=== PATIENT | male | born 1980 | race Caucasian/White ===

== ENCOUNTER 2022-09-23 12:15 | Outpatient (RCR) | payer BC, SELFPAY ==
--- NOTE | 2022-09-23 13:23 | OTOPEVDC ---
Assessment and note entered by Сергей Chambers, OTR/L, CHT Thank you for referring Wiliam Gómez to [facility].? An evaluation has been completed. No further treatment is needed. Evaluation Information Assessment Status Evaluation & Discharge Diagnosis Right 5th digit sprain Onset 06/23/22 Subjective Information Injury 06/23/22, but delayed tx. Been immobilized in boxer's splint since 08/27/22. Right hand dominant. Works in IT, on a computer. Presents today with minimal ROM deficit at the MCP joint of the right small finger (10 degrees less than left hand). IP joints are symmetrical to the unaffected hand. Orders are for ROM only at this time. Reported Pain Level Pain Score 0: Self Report Additional Pain Score Comments Patient reporting no pain at rest. Increased pain with abducting the finger or when shaking hands with someone. States gross gripping isn't too uncomfortable. Assessment OT Clinical Summary Patient referred to outpatient hand therapy following right small finger sprain 06/23/22. He has been immobilized for about a month and reports a decrease in his swelling and pain. His ROM is symmetrical to the unaffected, except for a 10 degree difference at the MCP joint. He has been issued an active/passive ROM HEP and demonstrates excellent understanding. We are not cleared to begin strengthening. He was issued putty to begin strengthening when cleared at his next appointment on 10/28/21. At this time he has an excellent understanding of his HEP and no further skilled OT is indicated at this time. Thank you for this referral. Plan of Care OT Services Indicated No
== END 2022-09-23 14:33 | disposition home or self-care (01) ==
LOC: ANHOT 12:15
PROVIDERS: PCP Family Medicine; Visit Provider Nurse Practitioner
DX: M79.642 Pain in left hand (principal); S63.617D Unspecified sprain of left little finger, subsequent encounter
CPT/HCPCS: 97110; 97165

== ENCOUNTER 2024-01-13 11:15 | Emergency (ER) | payer BC, SELFPAY ==
[2024-01-13 11:25] VITALS: BP 133/88; PULSE 51; RESP 16; TEMP 36.6; O2SAT 99
--- NOTE | 2024-01-13 13:08 | ED.GENADULT ---
HPI - General Adult General Chief complaint: Upper Respiratory Infection Stated complaint: sore throat,tired Source: patient Mode of arrival: ambulatory Limitations: no limitations History of Present Illness HPI narrative: Patient presents for evaluation of sore throat since yesterday. He initially thought his symptoms were related to allergies so he tried taking allergy medication. He did not have any relief in his symptoms today so opted to come in for further evaluation. No fever, chills, nausea, vomiting, diarrhea, cough, SOB, or other infectious symptoms. He does not smoke. He is not taking any medication to assist with his symptoms. Related Data Home Medications Medication Instructions Recorded Confirmed No Home Medications 01/13/24 01/13/24 Allergies Allergy/AdvReac Type Severity Reaction Status Date / Time No Known Allergies Allergy Verified 11/09/23 08:39 Review of Systems Review of Systems: CONSTITUTIONAL: Denies fever, chills, or sweats. EYES: Denies visual changes, redness, or discharge. ENT: Reports sore throat. Denies rhinorrhea, congestion, or otalgia. CARDIOVASCULAR: Denies chest pain, palpitations, or edema. RESPIRATORY: Denies cough or dyspnea. GASTROINTESTINAL: Denies abdominal pain, nausea, vomiting, or diarrhea. GENITOURINARY: Denies dysuria or hematuria. SKIN: Denies rash or itching. MUSCULOSKELETAL: Denies back pain, joint pain, or myalgia. NEUROLOGIC: Denies headache, numbness, dizziness, or weakness. PSYCHIATRIC: Denies anxiety or depression. [facility] Past Medical History Medical History Asthma Impingement syndrome, shoulder, left Rash Surgical History Surgical History History of wisdom tooth extraction Family History Family History Father Family history of coronary artery disease Heart disease Grandparent Heart disease Other Heart disease Social History Social History Smoking status: Never smoker Second hand tobacco smoke exposure: No Alcohol intake: current Drinks per week: 4 Alcohol use details: Beer Substance use: never Substance use type: does not use Living arrangements: with family Occupation/Education: occupation Additional occupation/education comments: [employer] Gender identity (if verbalized by the patient): Male Sexual Orientation (if Verbalized by the Patient): Straight or Heterosexual Spiritual care concerns: No Exam Narrative: GENERAL: Well-appearing, well-nourished, and in no acute distress. HEAD: Normocephalic, atraumatic. EYES: PERRLA and EOMI. ENT: Nares clear, no rhinorrhea or epistaxis. Mucous membranes moist. Oropharynx without tonsillar hypertrophy exudate or other lesions. Bilateral TMs pearly flores nonbulging NECK: Supple. No adenopathy or masses. No carotid bruits or JVD CHEST: Clear to auscultation. No respiratory distress. No wheezes rales or rhonchi HEART: Regular rate and rhythm. No murmur heard. Normal peripheral pulses. ABDOMEN: Soft, nontender, nondistended, normal active bowel sounds. EXTREMITIES: Normal range of motion. No edema. SKIN: Warm, dry, no rash. NEURO: No focal deficits. Alert and oriented x3. PSYCH: Normal mood and affect. Course Course Emergency Course: this is a 43-year-old male who presented for evaluation of a sore throat. Rapid strep negative. Through shared decision making opted to wait for throat culture before initiating any additional medications outside of [id number] agents which he can take as needed. He should follow-up with his primary provider and go to the ER for worsening symptoms. Patient is in agreement with plan of care. Level of Care: Express Care Visit Vital Signs Vital signs: Vi
== END 2024-01-13 13:10 | disposition home or self-care (01) ==
PROVIDERS: Emergency Provider Nurse Practitioner; PCP Family Medicine
DX: J02.9 Acute pharyngitis, unspecified (principal); J45.909 Unspecified asthma, uncomplicated
CPT/HCPCS: 87081; 87880; 99213; G0463

== ENCOUNTER 2025-02-02 00:05 | Day surgery (SDC) | payer BC, SELFPAY ==
[2025-01-24 14:09] VITALS: BMI 25.1
--- OUTSIDE RECORDS SUMMARY | 2025-02-02 00:07 | XMS_ITS | Clinical Summary ---
Author Organization [facility] Address [address] [place] [address] Care Team Providers Care First Aid Teacher Name Role Phone Ayan Alexander MD Primary Care Provider [phone] Source Comments [facility],non-owned Affiliates and Associated Physician Practices is amultiple site organization consisting of ambulatory clinics and hospital sitesin [place], [place], [place] and [place]. This disclosure is being madepursuant to the Care Everywhere program and may not contain all information available regarding this patient. Last updated 18.[facility] Allergies No known active allergies Medications * Be aware that medications may not be up to date on this document. Alwaysverify current medications with the patient. MELOXICAM PO Active Albuterol Sulfate (PROAIR HFA IN) Acti ve Family History Medical History Relation Name Comments Hyperlipidemia Father Relation Name Status Comments Father Alive Mother Alive Social History Tobacco Use Types Packs/Day Years Used Date Smoking Tobacco: Never Smokeless Tobacco: Never Sex and Gender Information Value Date Recorded Sex Assigned at Not on file Legal Sex Male 10:02 AM CDT Gender Identity Not on file Sexual Orientation Not on file Last Filed Vital Signs Vital Sign Reading Time Taken Comments Blood Pressure 116/80 12/21/2017 3:48 PM CDT Pulse 61 12/21/2017 3:48 PM CDT Temperature 36.9 C (98.5 F) 12/21/2017 3:48 PM CDT Respiratory Rate 16 12/21/2017 3:48 PM CDT Oxygen Saturation 98% 12/21/2017 3:48 PM CDT Inhaled Oxygen Concentration - - Weight 74.8 kg (165 lb) 12/21/2017 3:48 PM CDT Height 175.3 cm (5' 9 ) 12/21/2017 3:48 PM CDT Body Mass Index 24.37 12/21/2017 3:48 PM CDT Plan of Treatment Health Maintenance Due Date Last Done Comments LIPID TESTING 1980 HIV SCREENING 1995 HEPATITIS C SCREENING 10/02/1998 DTAP/TDAP/TD VACCINES (1 - Tdap) 1999 HEPATITIS B VACCINE (1 of 3 - 19+ 3-dose series) 1999 COVID-19 VACCINE (1 - 2023-2 5 season) 2024 DEPRESSION SCREENING 09/21/2024 INFLUENZA VACCINE (Season Ended) 2025 ZOSTER VACCINE (1 of 2) 2030 HIB VACCINE Aged Out No longer eligi ble based on patient's age to complete this topic HPV VACCINE Aged Out No longer eligi ble based on patient's age to complete this topic MENINGOCOCCAL (Group B) VACC INE SHARED DECISION-MAKING Aged Out No longer eligibl e based on patient's age to complete this topic MENINGOCOCCAL GROUPS A/C/Y/W VACCINE Aged Out No longer eligible b ased on patient's age to complete this topic PNEUMOCOCCAL VACCINE Aged Out No long er eligible based on patient's age to complete this topic Insurance Care Teams First Aid Teacher Relationship Specialty Start Date End Date Ayan Alexander MD [address] [place] [address] PCP - General Family Medicine 12/21/17
[2025-02-02 12:13] VITALS: BP 142/82; PULSE 55; RESP 20; TEMP 35.9; O2SAT 100; BMI 25.3
[2025-02-02] MEDS: LACTATED RINGERS 1,000 ML 150 ML IV CONT (12:23)
--- NOTE | 2025-02-02 12:41 | WPDANESEPPF ---
Anes - Initial Pre Proc Eval Procedure: Operation Date: 02/02/25 13:30 Proposed Procedures p Colonoscopy - Jose Menchaca MD Date/Time: 02/02/25 12:41 Surgeon: Jose Menchcaa MD Pre Op Diagnosis: Early satiety, constipation Patient Data Age: 44 Gender: M Height: 1.75 m Weight: 77.8 kg Last Vital Signs Temp 35.9 C L 02/02/25 12:13 Pulse 55 L 02/02/25 12:13 Resp 20 02/02/25 12:13 BP 142/82 H 02/02/25 12:13 Pulse Ox 100 02/02/25 12:13 O2 Del Method Room Air 02/02/25 12:13 Allergies Allergy/AdvReac Type Severity Reaction Status Date / Time No Known Allergies Allergy Verified 02/02/25 12:12 Home Medications Medication Instructions Recorded Confirmed Type No Home Medications 01/13/24 01/24/25 History Patient hx anesthesia problems: none Family hx anesthesia problems: none Results Review: All pre-operative results and documents have been reviewed as part of the pre-operative evaluation. [facility] Past Medical History Medical History Asthma Rash Impingement syndrome, shoulder, left Surgical History Surgical History History of wisdom tooth extraction Family History Family History Father Family history of coronary artery disease Heart disease Grandparent Heart disease Other Heart disease Social History Social History Social History: Smoking status: Never smoker Second hand tobacco smoke exposure: No Alcohol intake: current Drinks per week: 2 Substance use: never Substance use type: does not use Do You Feel Safe in your Home?: Yes Lack of Transportation: No Lack of Food: Never True Current Housing: I Have Housing Concerned About Future Housing: No Difficulty Paying Gas/Electric Bills: No Difficulty Paying for Meds: No Currently Unemployed: No Education: Don't Know Difficulty w/ Childcare or Family Care: No Living arrangements: with family Occupation/Education: occupation 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 Gender identity (if verbalized by the patient): Male Sexual Orientation (if Verbalized by the Patient): Straight or Heterosexual Spiritual care concerns: No Anes - Eval Final PreProcedure Day of Procedure 02/02/25 12:41 Patient weight: normal Heart: regular rate and rhythm Lungs: clear to auscultation Airway: Mallampati scale class II Neurological: alert and oriented Last oral intake: >/= 8 hours ASA classification: II Emergent: no Anesthetic plan: proceed Anesthesia type and monitoring: general GIVS and standard monitoring Results Review: All pre-operative results and documents have been reviewed as part of the pre-operative evaluation. Informed Consent: The patient's anesthetic plan and its attendant risks and benefits were discussed with the patient/family/POA. Questions were solicited and answers provided to the satisfaction of the patient/family/POA.
--- NOTE | 2025-02-02 13:16 | PM.IMHP ---
H&P: HPI History of Present Illness Date/Time: 02/02/25 13:16 Chief Complaint: Sudden change in bowel habits Narrative: approximately 2 months ago, the patient experienced severe constipation which he never had before, spending more than a week without a bowel movement, not associated with abdominal pain, rectal bleeding or tenesmus. He was referred by his primary care physician for colonoscopy to rule out mechanical causes for temporary Intestinal obstruction. Review of Systems Review of Systems: All systems reviewed & are unremarkable except as noted in HPI and below PMFSH Past Medical History Medical History Asthma Rash Impingement syndrome, shoulder, left Surgical History Surgical History History of wisdom tooth extraction Family History Family History Father Family history of coronary artery disease Heart disease Grandparent Heart disease Other Heart disease Social History Social History Social History: Smoking status: Never smoker Second hand tobacco smoke exposure: No Alcohol intake: current Drinks per week: 2 Substance use: never Substance use type: does not use Do You Feel Safe in your Home?: Yes Lack of Transportation: No Lack of Food: Never True Current Housing: I Have Housing Concerned About Future Housing: No Difficulty Paying Gas/Electric Bills: No Difficulty Paying for Meds: No Currently Unemployed: No Education: Don't Know Difficulty w/ Childcare or Family Care: No Living arrangements: with family Occupation/Education: occupation Additional occupation/education comments: [employer] Gender identity (if verbalized by the patient): Male Sexual Orientation (if Verbalized by the Patient): Straight or Heterosexual Spiritual care concerns: No Meds Home Medications and Allergies Home Medications Medication Instructions Recorded Confirmed Type No Home Medications 01/13/24 01/24/25 History Allergies Allergy/AdvReac Type Severity Reaction Status Date / Time No Known Allergies Allergy Verified 02/02/25 12:12 Vital Signs Vital Signs - 24 hr 02/02/25 12:13 Temperature 96.6 F L Pulse Rate 55 L Respiratory Rate 20 Blood Pressure 142/82 H Pulse Oximetry 100 Oxygen Delivery Room Air Exam Const: General: cooperative and healthy appearing Resp: Effort & Inspection: normal respiratory effort and able to speak in complete sentences Auscultation: clear to auscultation bilaterally Cardio: Rate: regular rate Rhythm: regular rhythm GI: Inspection: normal to inspection GI Palp: No No hepatosplenomegaly present Auscultation: normal bowel sounds Rectal Exam: deferred Skin: General skin exam: normal color Psych: Appearance: grossly normal Mental Status: mental status grossly normal Assessment and Plan Assessment and plan (1) Change in bowel habits: Code(s): R19.4 - Change in bowel habit Status: Acute Assessment and Plan: The patient is deemed a good candidate for the procedure. Consent signed. Will proceed.
[2025-02-02] MEDS: SIMETHICONE ORAL SUSPENSION 20 MG/0.3 ML 30 ML BOTTLE 0.6 ML IRRIGATION (13:30)
[2025-02-02 13:40] VITALS: BP 112/69; PULSE 48; RESP 15; O2SAT 100
[2025-02-02 13:50] VITALS: BP 115/66; PULSE 50; RESP 20; O2SAT 99
[2025-02-02 14:00] VITALS: BP 118/70; PULSE 50; RESP 20; O2SAT 99
== END 2025-02-02 14:10 | disposition home or self-care (01) ==
PROVIDERS: PCP Family Medicine; Referring Provider Family Medicine; Visit Provider Internal Medicine Gastroenterology
PROC: 0DJD8ZZ Inspection of Lower Intestinal Tract, Via Natural or Artificial Opening Endoscopic (ICD-10-PCS; CPT 45378; principal; 2025-02-02 13:30)
DX: K59.00 Constipation, unspecified (principal); D12.0 Benign neoplasm of cecum
CPT/HCPCS: 45385; 88305; J2704; J7120